=== PATIENT | male | born 1985 | race Two or more races ===

== ENCOUNTER 2017-04-21 20:55 | Emergency (ER) | payer OTHER ==
[~2017-04-21] VITALS: Ht 177.8 cm; Wt 100.0 kg
[2017-04-21 21:12] VITALS: BP 144/83; PULSE 105; RESP 16; O2SAT 99
[2017-04-21 21:23] LABS: BASOPHILS % (AUTO) 0.6 % (0-3); EOSINOPHILS % (AUTO) 3.4 % (0-5); MONOCYTES % (AUTO) 8.3 % (4-12); Mean Corpuscular Hemoglobin 29.5 pg (27.0-35.0); Mean Corpuscular Volume 85.2 fL (81-100); Platelet Count 284 bil/L (150-400)
--- NOTE | 2017-04-21 21:24 | ED.REPORT ---
HPI-Psychiatric Illness Date of Service Apr 21, 2017 ED Provider: 31-year-old male past medical history substance abuse including alcohol and opioids presents today with suicidal ideation. After being confronted by his girlfriend about his drinking he proceeded to try and cut his wrists stating that he wanted to "end it all". Police were called and he was subsequently brought to the ER. Today in the ER he refuses to talk about this, and is unwilling to give details about his current situation. His blood alcohol level was noted to be 0.113 on arrival. He denies medical symptoms at this time including shortness of breath, chest pain, headache, anxiety. Patient was initially uncooperative and unwilling to stay in ER, however, a aurea baptiste was called in from that time he has shown at least some willingness to cooperate including allowing for blood draws. However he continues to state that he does not want to talk about his current situation. Nursing Notes Stated Complaint: SUICIDAL Chief Complaint: Psychiatric Complaint Nursing Notes Reviewed: Yes Allergies: Coded Allergies: No Known Allergies (Unverified , 04/21/17) General Time Seen by MD: 21:24 Chief Complaint Suicidal attempt, Suicidal ideation Hx Obtained From: Patient Arrived By: Police Onset Occurred: Just prior to arrival Context of Onset: EtOH use Severity: Current: No pain currently Risk-Psychiatric Illness Suicide Risk Stratification Suicide Risk Factors - Adult: : Alcohol use: Substance abuseNo: Prior psych admission RF Statements: Risk factors reviewed Past Medical History Social History Patient unwilling to discuss alcohol use at this time He states that he has abused other substances in the past including opioids, however, he denies any current addictive states Review of Systems Review of Systems Note: Patient denies symptoms at this time Complete sys rev & neg: except as marked. Physical Exam Initial Vital Signs Vital Signs (First) Date Time Temp Pulse Resp B/P Pulse Ox O2 Delivery O2 Flow Rate FiO2 04/21/17 21:12 36.8 105 16 144/83 99 Room Air 04/22/17 05:18 99 Initial VS: Reviewed, Vital signs normal Head / Eyes: Atraumatic, Normocephalic, PERRL ENT: Mucous membranes moist, Conjunctiva normal, No scleral icterus Respiratory: Breath sounds normal, Clear to auscultation, No respiratory distress Cardiovascular: Regular rate & rhythm, Heart sounds normal Abdomen / GI: Soft, Non-tender, No guarding, No rebound, No distention Skin: Warm, Dry Interpretation & Diagnostics Lab Results Interpretation Result Diagram: 04/21/17211404/21/172114 Test 04/21/17 21:11 04/21/17 21:15 04/21/17 21:57 Hold Urine Received (Received) White Blood Count 8.0th/mm3 (3.8-10.1) Red Blood Count 5.28mil/mm3 (4.40-5.80) Hemoglobin 15.6g/dL (13.8-17.2) Hematocrit 45.0% (41.0-50.0) Mean Corpuscular Volume 85.2fL (81-100) Mean Corpuscular Hemoglobin 29.5pg (27.0-35.0) Mean Corpuscular Hemoglobin Concent 34.7% (32.0-37.0) Red Cell Distribution Width 12.5% (12.3-15.4) Platelet Count 284bil/L (150-400) Neutrophils (%) (Auto) 52.0% (40-74) Lymphocytes (%) (Auto) 35.2% (14-46) Monocytes (%) (Auto) 8.3% (4-12) Eosinophils (%) (Auto) 3.4% (0-5) Basophils (%) (Auto) 0.6% (0-3) Sodium Level 143mEq/L (134-144) Potassium Level 3.6mEq/L (3.5-5.2) Chloride Level 105mEq/L (97-108) Carbon Dioxide Level 20mmol/L (18-29) Blood Urea Nitrogen 22mg/dL (6-20) Creatinine 1.58mg/dL (0.76-1.27) Estimat Glomerular Filtration Rate 54mL/min (>59) Glucose Level 93mg/dL (60-99) Calcium Level 8.8mg/dL (8.5-10.1) Total Bilirubin 0.3mg/dL (0.0-1.2) Aspartate Amino Transf (AST/SGOT) 21U/L (0-50) Alanine Aminotransferase (ALT/SGPT) 20U/L (0-44) Alkaline Phosphatase 57U/L (25-150) Total Protein 7.2g/dL (6.4-8.4) Albumin 4.2g/dL (3.4-5.0) Thyroid Stimulating Hormone (TSH) 2.370uIU/mL (0.450-4.500) Hold [place] Top Tube Received (Received) Salicylates Level < 3.0ug/mL (30-250) Acetaminophen Level < 15.0ug/mL Rx (10-25) Lab Results Interpretation: Elevated BUN/creatinine, remainder normal Re-Eval/Medical Decision Med Decision/Clinical Course Blood alcohol level upon admission to the hospital was 0.113. We will need to wait until blood alcohol level returns to 0.08 before speaking with a mental health professional even though he appears to be cognizant at this time. His workup was initiated by a chacorta and his care is being turned over change of shift to Dr. Toussaint while awaiting sobriety. Counseled Regarding: Diagnosis Nelson Funk MD Apr 21, 2017 21:24 Félix Molina DO Apr 21, 2017 21:38
[2017-04-22 05:15] VITALS: BP 132/83; PULSE 89; RESP 16; O2SAT 99
[2017-04-22 05:18] VITALS: BP 132/83; PULSE 89
[2017-04-22 07:38] VITALS: BP 103/61; PULSE 86; RESP 16; O2SAT 98
[2017-04-22] MEDS ORDERED: DSLF250T PO (13:01)
[2017-04-22 13:44] VITALS: BP 146/93; PULSE 85; RESP 18; O2SAT 99
== END 2017-04-22 13:44 | disposition home or self-care (01) ==
LOC: SED 20:55
DX: F10.220 Alcohol dependence with intoxication, uncomplicated (principal); R45.851 Suicidal ideations
CPT/HCPCS: 36415; 80053; 82075; 84443; 85025; 99284; G0480

== ENCOUNTER 2017-04-23 11:41 | Emergency (ER) | payer OTHER ==
[~2017-04-23] VITALS: Ht 177.8 cm; Wt 95.5 kg
[~2017-04-23 11:41] MED LIST: DSLF250T PO
[2017-04-23 11:42] VITALS: BP 136/81; PULSE 113; RESP 20
--- NOTE | 2017-04-23 11:42 | ED.REPORT ---
HPI-General Illness Date of Service Apr 23, 2017 ED Provider: The patient is a 31 year old male who was brought to the emergency department by EMS for decreased LOC. The patient was found by housekeepers in a hotel room that he was supposed to have checked out of this morning. There were empty vodka bottles in the room. The patient was able to walk down the stairs for medics but was somewhat uncooperative. He is unwilling to provide any history at this time. Nursing Notes Stated Complaint: DECREASED LOC Chief Complaint: Substance Abuse Nursing Notes Reviewed: Yes Allergies: Coded Allergies: No Known Allergies (Unverified , 04/23/17) Scheduled Disulfiram (Antabuse) 250 Mg Tablet 250 MG PO DAILY General Time Seen by MD: 11:42 Chief Complaint Other (decreased LOC) Hx Obtained From: EMS Unable to Obtain Hx: Patient condition, Uncooperative, Intoxicated Arrived By: Ambulance Onset Occurred: Onset unknown Symptom Duration: Duration unknown Recent Healthcare: Recent doctor visit Similar Sx Previous: Yes Past Medical History Past Medical History Alcohol abuse Smoking History Unknown if Ever Smoker Social History Hx of alcohol abuse Other Social History: Local resident Ambulatory Status Independent Unable to Obtain History Past medical history, Past surgical history Review of Systems Unable to Obtain ROS Patient condition, Intoxicated Physical Exam Vital Signs Vital Signs Date Time Temp Pulse Resp B/P Pulse Ox O2 Delivery O2 Flow Rate FiO2 04/23/17 16:36 105 20 109/66 96 Room Air 04/23/17 13:54 36.9 94 16 118/66 96 Room Air 04/23/17 11:57 107 25 130/79 94 Room Air 04/23/17 11:42 36.8 113 20 136/81 Room Air Initial VS: Reviewed Skin: Warm, Dry, No cyanosis Alertness: Positive: Somnolent Awakens and talks after verbal stimuli Head / Eyes: Atraumatic, Normocephalic, PERRL ENT: Atraumatic, Airway patent Neck: Atraumatic, Supple Respiratory / Chest: Atraumatic, Breath sounds NL, Breath sounds = bilat, No respiratory distress, No rales, No rhonchi, No wheezing, No retractions Cardiovascular: Heart rate NL, Regular rhythm, Heart sounds NL, No gallop, No murmurs, No rubs Abdomen: Atraumatic, Soft, Non-tender Upper Extremities Upper Extremity / MS: No deformity, Neurologic intact, Vascular intact Lower Extremity / Pelvis / MS: No deformity, Neurologic intact, Vascular intact Neurologic: Speech NL Mental Status: Positive: Somnolent Moving all extremities. Interpretation & Diagnostics Lab Results Interpretation Result Diagram: 04/23/17 1200 04/23/17 1200 Test 04/23/17 12:00 04/23/17 15:21 White Blood Count 6.6th/mm3 (3.8-10.1) Red Blood Count 5.40mil/mm3 (4.40-5.80) Hemoglobin 15.9g/dL (13.8-17.2) Hematocrit 46.5% (41.0-50.0) Mean Corpuscular Volume 86.1fL (81-100) Mean Corpuscular Hemoglobin 29.4pg (27.0-35.0) Mean Corpuscular Hemoglobin Concent 34.2% (32.0-37.0) Red Cell Distribution Width 12.9% (12.3-15.4) Platelet Count 316bil/L (150-400) Neutrophils (%) (Auto) 38.2% (40-74) Lymphocytes (%) (Auto) 51.5% (14-46) Monocytes (%) (Auto) 6.4% (4-12) Eosinophils (%) (Auto) 2.6% (0-5) Basophils (%) (Auto) 0.5% (0-3) Hold Purple Top Tube Received (Received) Hold Blue Top Tube Received (Received) Sodium Level 143mEq/L (134-144) Potassium Level 4.2mEq/L (3.5-5.2) Chloride Level 104mEq/L (97-108) Carbon Dioxide Level 22mmol/L (18-29) Blood Urea Nitrogen 16mg/dL (6-20) Creatinine 1.01mg/dL (0.76-1.27) Estimat Glomerular Filtration Rate 91mL/min (>59) Glucose Level 110mg/dL (60-99) Calcium Level 8.8mg/dL (8.5-10.1) Total Bilirubin 0.2mg/dL (0.0-1.2) Aspartate Amino Transf (AST/SGOT) 18U/L (0-50) Alanine Aminotransferase (ALT/SGPT) 16U/L (0-44) Alkaline Phosphatase 55U/L (25-150) Total Protein 7.3g/dL (6.4-8.4) Albumin 4.0g/dL (3.4-5.0) Thyroid Stimulating Hormone (TSH) 1.030uIU/mL (0.450-4.500) Hold [place] Top Tube Received (Received) Hold Urine Received (Received) CT Head Interpretation IMPRESSION: No acute intracranial findings. Dictated by: Shavonne Welch M.D. on 04/23/2017 at 12:24 Study: Head CT no contrast Interpretation / Wet Read by: Interpret - Radiologist Re-Eval/Medical Decision Med Decision/Clinical Course Patient arrives severely intoxicated, head CT is performed as the history is unclear. Patient got up on several occasions with a distinctively unsteady gait and tried to leave the ER, he was somnolent, slurring his words and clearly not in any reasonable condition to leave under his own volition. For this reason he was medicated. Currently awaiting metabolism of medication and alcohol and will be reassessed. Source of Hx: Old records, EMS Time of Eval: 14:00 Re-Evaluation/Progress Note: Rechecked the patient. He is more awake and able to answer questions. The patient admits to drinking last night. The patient does not have any friends or family that we can call. When asked several questions, he respond, "doesn't matter." When asked if he was drinking to kill himself, he states, "just do what you got to do." The patient is elusive and vaguely eluted to depression but wouldn't answer any questions definitively. Time of Eval: 14:25 Re-Evaluation/Progress Note: I was notified by the nurse that the patient was attempting to get out of bed and threatening to leave. When I got to the room the patient was back in bed, slurring his words. The patient is too intoxicated to leave. When discussed where the patient would go if he left, he states, "don't worry about it." Time of Eval: 16:30 Re-Evaluation/Progress Note: The patient is resting comfortably. Counseled Regarding: Diagnosis, Lab results Discharge & Departure Shift Change Sign-Out Patient Care Transferred: Yes Discussed Complaint(s): Yes Laboratory Evaluation: Lab evaluation discussed Response to Therapy: Improved, Discussed Primary Impression: Alcohol intoxication Complication of substance-induced condition: uncomplicated Qualified Code: F10.120 - Alcohol abuse with intoxication, uncomplicated Discharge Condition All VS Reviewed: Yes Condition: Stable Referrals: NOPCP (PCP) Care Transferred to: Dr. Nguyen Care Transferred at: 18:01 Kyler Attestation Portions of this note were transcribed by Stephenie Duron. I, Dr. Frank personally performed the history, physical exam and medical decision-making; I reviewed and confirmed the accuracy of the information in the transcribed note. Signed by: Kyler Simms, 04/23/2017 at 1800. Raphael Frank DO Apr 23, 2017 11:42 Stephenie Duron Apr 23, 2017 11:47
[2017-04-23 11:57] VITALS: BP 130/79; PULSE 107; RESP 25; O2SAT 94
--- NOTE | 2017-04-23 12:27 | DRSVH ---
PROCEDURE: CT BRAIN WITHOUT CONTRAST ([id number]) INDICATIONS: ALOC TECHNIQUE: Noncontrast 4.5 mm thick angled axial sections acquired from the foramen magnum to the vertex, with c oronal reformats. COMPARISON: None. FINDINGS: Image quality: Excellent. CSF spaces: Basal cisterns are patent. No extra-axial fluid collections. Ventricles are normal in size and shape. Brain: No midline shift. No intracranial masses or hemorrhage. Laurent-white matter interface is norm al. Skull and face: Calvarium and visualized facial bones are intact, without suspicious lesions. Sinuses: Visualized sinuses and mastoids are clear. IMPRESSION: No acute intracranial findings. Dictated by: Shavonne Welch M.D. on 04/23/2017 at 12:24 Approved by: Shavonne Welch M.D. on 04/23/2017 at 12:26
[2017-04-23 13:54] VITALS: BP 118/66; PULSE 94; RESP 16; O2SAT 96
[2017-04-23] MEDS ORDERED: Haloperidol 5 mg/mL Inj IM ONE (14:30)
[2017-04-23 14:32] LABS: BASOPHILS % (AUTO) 0.5 % (0-3); EOSINOPHILS % (AUTO) 2.6 % (0-5); MONOCYTES % (AUTO) 6.4 % (4-12); Mean Corpuscular Hemoglobin 29.4 pg (27.0-35.0); Mean Corpuscular Volume 86.1 fL (81-100); NEUTROPHILS % (AUTO) 38.2 % (40-74); Platelet Count 316 bil/L (150-400)
[2017-04-23 16:36] VITALS: BP 109/66; PULSE 105; RESP 20; O2SAT 96
[2017-04-23 18:37] VITALS: BP 105/51; PULSE 93; RESP 20; O2SAT 95
[2017-04-23 21:37] VITALS: BP 116/73; PULSE 104; RESP 18; O2SAT 94
[2017-04-24 00:51] VITALS: BP 133/54; PULSE 105; RESP 20; O2SAT 97
[2017-04-24 05:58] VITALS: BP 151/98; PULSE 80; RESP 12; O2SAT 98
[2017-04-24 08:45] VITALS: BP 151/98; PULSE 80; RESP 12; O2SAT 98
== END 2017-04-24 08:45 | disposition home or self-care (01) ==
LOC: SED 11:41 → EDBD 11:41 → SED 04-24 08:45
DX: F10.120 Alcohol abuse with intoxication, uncomplicated (principal)
CPT/HCPCS: 36415; 70450; 80053; 81002; 82075; 84443; 85025; 96372; 99285; J1200; J1630; J2060